=== PATIENT | male | born 1995 | race Caucasian/White ===

== ENCOUNTER 2016-08-06 13:56 | Emergency (ER) | payer OTHER ==
[~2016-08-06] VITALS: Ht 137.2 cm; Wt 54.0 kg
[~2016-08-06 13:56] MED LIST: ACET500C5 PO; ELEC100080 PO; ONDA4TAB35 PO
[2016-08-06 14:01] VITALS: Ht 137.2 cm; Wt 54.0 kg
[2016-08-06] MEDS ORDERED: ONDA8TAB14 PO (15:01)
[2016-08-06] MEDS ORDERED: ACET500C5 PO (15:01)
--- NOTE | 2016-08-06 15:13 | ERD ---
ER Documentation Chief Complaint Date/Time DATE: 08/06/16 TIME: 15:04 Chief Complaint vomitting since 4 am today HPI 20-year-old male with history of Down syndrome brought in by mother complaining of vomiting since 4 AM today. Mother stated that he vomited more than 10 times today. Last episode was 20 minutes ago. He was able to keep down small amount of water without vomiting. Mother took patient to [facility] ER this morning. Patient was diagnosed with cholelithiasis. He was discharged with prescription of Zofran and Spencer. Mother stated that he had not helped, patient is still vomiting. Mother is worried because patient is unable to communicate to him if he is in pain. He also has diarrhea starting today. He has not eaten anything today. Denies fever. Denies cough or runny nose. Mother has scheduled a appointment with PCP for tomorrow morning. ROS All systems reviewed and are negative except as per history of present illness. Medications Home Meds Active Scripts Acetaminophen* (Tylophen*) 500 Mg Capsule, 1 CAP PO Q6H Y for PAIN AND OR ELEVATED TEMP, #20 CAP Prov:ARCELIA TAYLOR. AGILE JAVA DEVELOPER 08/06/16 Ondansetron (Ondansetron Odt) 8 Mg Tab.rapdis, 8 MG PO Q6H Y for NAUSEA AND/OR VOMITING, #10 TAB Prov:ARCELIA TAYLOR AGILE JAVA DEVELOPER 08/06/16 Ondansetron Hcl* (Zofran* ODT) 4 mg -ODT Tab.disper, 4 MG PO Q6 Y for NAUSEA AND /OR VOMITING, #5 TAB Prov:ARCELIA TAYLOR AGILE JAVA DEVELOPER 12/14/15 Electrolyte,Oral (Pedialyte) 1,000 Ml Solution, 100 ML PO Q6 Y for VOMITTING, # 1000 ML Prov:ARCELIA TAYLOR. AGILE JAVA DEVELOPER 12/14/15 Acetaminophen* (Tylophen*) 500 Mg Capsule, 1 CAP PO Q6H Y for PAIN AND OR ELEVATED TEMP, #20 CAP Prov:ARCELIA TAYLOR AGILE JAVA DEVELOPER 12/14/15 Allergies Allergies: Coded Allergies: No Known Allergy (Unverified , 01/18/16) PMhx/Soc History of Surgery: Yes (ear surg x2) Anesthesia Reaction: No Hx Neurological Disorder: No Hx Respiratory Disorders: No Hx Cardiac Disorders: No Hx Psychiatric Problems: No Hx Miscellaneous Medical Probl: Yes (down syndrome) Hx Alcohol Use: No Hx Substance Use: No Hx Tobacco Use: No Physical Exam Vitals Vital Signs Date Time Temp Pulse Resp B/P Pulse Ox O2 Delivery O2 Flow Rate FiO2 08/06/16 14:01 98.9 112 18 115/63 97 Physical Exam General impression: Well-developed, well-nourished, 20-year-old male, patient is nonverbal, smiling, in no acute distress Head: Normocephalic, atraumatic. Respiration: Normal respiratory effort. Lungs clear to auscultate bilaterally. No wheezes, rales or rhonchi. Cardiovascular: Regular rate and rhythm. No murmurs or extra heart sounds. Abdomen: Abdomen normal to inspection. Right upper quadrant tenderness. No masses or organomegaly. Bowel sounds normal. Skin: Normal turgor. No rash or lesions. Psych: Normal mood and affect. Procedures/MDM Well-appearing 20-year-old male with history of Down syndrome presents to ED with vomiting and abdominal pain. Patient has undergone complete workup at [facility], and was diagnosed with cholelithiasis. The ultrasound at [facility] showed cholelithiasis with mild gallbladder wall thickening. Slightly elevated WBC of 12.1 is seen, CBC and CMP are otherwise normal. Patient was given Zofran and Spencer by [facility]. I suspect that Spencer might have contributed to his continued vomiting. Asked mother to stop the Spencer. Patient has appointment with PCP for tomorrow. Advised mother to request for a general surgeon referral by PCP. Meanwhile, try to maintain p.o. fluid intake for the patient, and gave him a bland diet if he is hungry. Patient appears well, stable for discharge and outpatient management. Medical decision making shared with patient and family. Education provided to patient and family. Patient and family expressed understanding of the plan. Medications on discharge: Zofran, Tylenol. Follow-up: Primary care provider in 2-3 days or return to ED if worse. Departure Diagnosis: Primary Impression: Vomiting Vomiting type: unspecified Vomiting Intractability: non-intractable Nausea presence: unspecified Qualified Code: R11.10 - Non-intractable vomiting, presence of nausea not specified, unspecified vomiting type Additional Impression: Cholelithiasis Cholelithiasis location: gallbladder Cholecystitis presence: without cholecystitis Biliary obstruction: without biliary obstruction Qualified Code : K80.20 - Calculus of gallbladder without cholecystitis without obstruction Condition: Stable Patient Instructions: Gallstones, Vomiting (6Y-Adult) Additional Instructions: Llame al doctor MAANA y juana sejal YOHAN PARA DENTRO DE 2-3 DOMÍNGUEZ.Dgale a la secretaria que nosotros le instruimos hacer esta yohan.Avise o llame si hussein condicin se empeora antes de la yohan. Regresa aqui si peor o no mejor. ARCELIA TAYLOR NP Aug 06, 2016 15:13
== END 2016-08-06 15:21 | disposition home or self-care (01) ==
LOC: FTE 13:56
DX: R11.10 Vomiting, unspecified (principal); K80.20 Calculus of gallbladder without cholecystitis without obstruction
CPT/HCPCS: 99283

== ENCOUNTER 2016-09-11 10:59 | Day surgery (SDC) | payer OTHER ==
[~2016-09-11] VITALS: Ht 152.4 cm; Wt 52.0 kg
[2016-09-11] VITALS (8 sets, daily range): BP systolic 91–127; BP diastolic 52–70; PULSE 77–93; RESP 18–25; Ht 152.4 cm; Wt 52.0 kg
[~2016-09-11 10:59] MED LIST changes: +CEFAZOLIN 1 GM INJ ONE; +EPHEDrine SULFATE 50 MG/5 ML SYG ONE; +ONDA8TAB14 PO
[2016-09-11] MEDS ORDERED: BUPIVACAINE 0.25% (MPF) 30 ML INJ ONE (12:54)
[2016-09-11] MEDS ORDERED: BUPIVACAINE 0.25% (STERILE-PAK) 30 ML INJ INJ ONE (13:00)
[2016-09-11] MEDS ORDERED: NEOSTIGMINE 3 MG/3 ML SYRINGE ONE (13:10)
[2016-09-11] MEDS ORDERED: FENTAnyl 50 MCG/ML VIAL ONE (13:10)
[2016-09-11] MEDS ORDERED: PROPOFOL 20 ML ONE (13:10)
[2016-09-11] MEDS ORDERED: ONDANSETRON 4 MG INJ ONE (13:10)
[2016-09-11] MEDS ORDERED: ROCURONIUM 50 MG INJ ONE (13:10)
[2016-09-11] MEDS ORDERED: MIDAZOLAM 1 MG/ML 2 ML INJ ONE (13:10)
[2016-09-11] MEDS ORDERED: DEXAMETHASONE 4 MG/ML 1 ML INJ ONE (13:10)
[2016-09-11] MEDS ORDERED: GLYCOPYRROLATE 0.4 MG INJ ONE (13:10)
[2016-09-11] MEDS ORDERED: LIDOCAINE 100 MG SYRINGE ONE (13:10)
[2016-09-11] MEDS ORDERED: KETOROLAC 30 MG INJ ONE (13:58)
[2016-09-11] MEDS ORDERED: HYDROmorphONE (0.2 MG/ML) 10ML SYG IV PRN ×2 (14:00)
[2016-09-11] MEDS ORDERED: hydrALAzine 20 MG INJ IV PRN (14:00)
[2016-09-11] MEDS ORDERED: FENTAnyl 50 MCG/ML VIAL IV PRN ×3 (14:00)
[2016-09-11] MEDS ORDERED: EPHEDrine SULFATE 50 MG/5 ML SYG IV PRN (14:00)
[2016-09-11] MEDS ORDERED: ONDANSETRON 4 MG INJ IV PRN (14:00)
[2016-09-11] MEDS ORDERED: LABETALOL HCL 20MG INJ IV PRN (14:00)
[2016-09-11] MEDS ORDERED: MIDAZOLAM 1 MG/ML 2 ML INJ IV PRN (14:00)
[2016-09-11] MEDS ORDERED: TRIMETHOBENZAMIDE 100 MG/ML VIAL IM PRN (14:00)
[2016-09-11] MEDS ORDERED: DIPHENHYDRAMINE 50 MG INJ IV PRN (14:00)
[2016-09-11] MEDS ORDERED: MEPERIDINE 25 MG INJ IV PRN (14:00)
--- NOTE | 2016-09-11 14:26 | OPR ---
DATE OF OPERATION: 09/11/2016 INDICATION: This is a 20-year-old male with symptomatic gallstones. He and his mother request surg ical excision of his gallbladder. Risks, alternatives, benefits, and personnel were discussed with the patient. Patient expressed understanding and consents to the operation. PREOPERATIVE DIAGNOSIS: Symptomatic gallstones. POSTOPERATIVE DIAGNOSIS: Symptomatic gallstones. OPERATION: Laparoscopic cholecystectomy. SURGEON: Harriett Zavala MD SPECIMENS: Gallbladder. COMPLICATIONS: None. ANESTHESIA: General. PROCEDURE: The patient was taken to the OR and prepped and draped in the usual sterile fashion. Rodriges rgical timeout was performed. IV antibiotics were given. Infraumbilical incision was made transver sely with a 15 blade. Dissection cautery was carried down to the fascia which was divided with curv ed Funez scissors. An 0 Vicryl U-stitch was placed in the fascia. Balloon Antonio trocar was introdu morro. Pneumoperitoneum was established. Midepigastric 12 mm optical trocar right upper quadrant, ri ght upper flank 5 mm optical trocars are placed under direct visualization. Upon initial inspection , there were some adhesions to the gallbladder. The cystic duct was identified. The critical view was established. The cystic duct and cystic artery are divided using a 35 mm [place] vascular load stapler. The gallbladder was taken off the gallbladder bed. There was good hemostasis. Gallbladde r was retrieved using an EndoCatch bag. Ports were removed under direct visualization, 0 Vicryl U-s titch was tied down. Skin was closed using interrupted 3-0 Vicryl and interrupted 4-0 Monocryl. Lo elfego anesthesia was injected. Dry dressings were applied. Dictated By: HARRIETT ZAVALA MD SB/NTS Conf#: [id number] DID#: [id number]
[2016-09-11] MEDS ORDERED: HYDROCODONE/APAP (5/325) TAB PO ONE (14:30)
[2016-09-11] MEDS: HYDROmorphONE (0.2 MG/ML) 10ML SYG IV PRN ×2 (14:33→14:38)
== END 2016-09-11 17:40 | disposition home or self-care (01) ==
LOC: SDS 10:59
PROVIDERS: ATTEND Surgery
DX: K80.10 Calculus of gallbladder with chronic cholecystitis without obstruction (principal); Q90.9 Down syndrome, unspecified
CPT/HCPCS: 47562; 88304; J0690; J1100; J1170; J1885; J2001; J2250; J2405; J2710; J3010; Z7512; Z7610

== ENCOUNTER 2017-01-14 07:13 | Day surgery (SDC) | payer OTHER ==
--- NOTE | 2017-01-13 14:26 | PREOPHP ---
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 Underwent myringotomy tube surgery in December 2013, February 2015, December 2015. Tubes have come out, conductive hearing loss and serous otitis persist. The patie nt now readmitted to the hospital for bilateral ear surgery. PAST MEDICAL HISTORY: Negative. ALLERGIES: Negative. DAILY MEDICATIONS: Negative. MEDICAL CONDITIONS: Negative. CLOTTING DISORDERS: Negative. HABITS: Negative. FAMILY HISTORY: Negative. REVIEW OF SYSTEMS: Negative. PAST SURGICAL HISTORY: See HPI. PHYSICAL EXAMINATION: GENERAL: Well-developed, well-nourished male patient in no acute distress. HEAD: Normocephalic. No masses or deformities. EARS AND TYMPANIC MEMBRANES: Reveal serous otitis media. NOSE: Clear. OROPHARYNX: Clear. NECK: No masses or adenopathy. CHEST: Clear to P and A. HEART: Regular sinus rhythm without murmur. ABDOMEN: Soft, bowel sounds normal. No masses or megaly. EXTREMITIES: Full range of motion without deformity. NEUROLOGIC: Physiologic. RECTAL: Not done. IMPRESSION: Serous otitis media. RECOMMENDATIONS: Admit for surgery. Dictated By: ILYA MOULTON/JAKOB Conf#: [id number] DID#: [id number]
[2017-01-14] VITALS (17 sets, daily range): BP systolic 63–141; BP diastolic 35–80; PULSE 76–112; RESP 13–25; Ht 144.8 cm; Wt 56.0 kg
[~2017-01-14] VITALS: Ht 144.8 cm; Wt 56.0 kg
[~2017-01-14 07:13] MED LIST changes: -ACET500C5 PO; -CEFAZOLIN 1 GM INJ ONE; -ELEC100080 PO; -EPHEDrine SULFATE 50 MG/5 ML SYG ONE; -ONDA8TAB14 PO
[2017-01-14] MEDS ORDERED: FENTAnyl 50 MCG/ML VIAL ONE (09:19)
[2017-01-14] MEDS ORDERED: PHENYLephrine (100 MCG/ML) 5ML SYG ONE (09:26)
[2017-01-14] MEDS ORDERED: PROCHLORPERAZINE 10 MG INJ IV PRN (09:30)
[2017-01-14] MEDS ORDERED: FENTAnyl 50 MCG/ML VIAL IV PRN (09:30)
[2017-01-14] MEDS ORDERED: ONDANSETRON 4 MG INJ IV PRN (09:30)
[2017-01-14] MEDS ORDERED: OXYCODONE/ACETAMINOPHEN (5/325) TAB PO PRN (09:30)
[2017-01-14] MEDS ORDERED: HYDROmorphONE (0.2 MG/ML) 10ML SYG IV PRN (09:30)
[2017-01-14] MEDS ORDERED: DIPHENHYDRAMINE 50 MG INJ IV PRN (09:30)
[2017-01-14] MEDS ORDERED: LIDOCAINE 2% (SDV) 5 ML INJ ONE (09:32)
[2017-01-14] MEDS ORDERED: PROPOFOL 40 ML ONE (09:32)
[2017-01-14] MEDS ORDERED: EPHEDrine SULFATE 50 MG/5 ML SYG ONE (10:23)
[2017-01-14] MEDS ORDERED: ACETAMINOPHEN 160 MG/5ML CUP PO PRN (10:30)
--- NOTE | 2017-01-14 17:31 | OPR ---
DATE OF OPERATION: 01/14/2017 PREOPERATIVE DIAGNOSIS: Serous otitis media. POSTOPERATIVE DIAGNOSIS: Serous otitis media. PROCEDURE PERFORMED: Bilateral myringotomies with tubes. OPERATION: The patient was brought to the operating room under parenteral sedation, general anesthe leo by mask. Sterile sheets and drapes applied. Zeiss microscope was utilized to clean both ears f ollowed by myringotomy incisions bilaterally with evacuation of thick fluid and placement of ventila ting tubes. The patient then awakened in the operating room and returned to recovery in excellent c ondition. ESTIMATED BLOOD LOSS: Nil. COMPLICATIONS: None. Dictated By: ILYA KUMARI MD SC/NTS Conf#: [id number] DID#: [id number]
== END 2017-01-14 11:20 | disposition home or self-care (01) ==
LOC: SDS 07:13
PROVIDERS: ATTEND Otolaryngology Otolaryngology/Facial Plastic Surgery
DX: H65.23 Chronic serous otitis media, bilateral (principal)
CPT/HCPCS: 69436; J2370; J3010; L8699; Z7512; Z7610

== ENCOUNTER 2017-05-18 21:07 | Emergency (ER) | payer OTHER ==
[~2017-05-18] VITALS: Wt 56.5 kg
[2017-05-18] MEDS ORDERED: ONDANSETRON 4 MG INJ IV STA (23:43)
--- NOTE | 2017-05-19 00:02 | ERD ---
ER Documentation Chief Complaint Chief Complaint vomiting/abd pain x 2 days HPI 21-year-old male with history of Down syndrome presents with a chief complaint of abdominal pain 4 days with vomiting. Decreased appetite per mother. Has not been able to tolerate fluids. Mother seems like a reliable historian. History of cholecystectomy. Mother reports fever but has not taken a temperature of the patient. Has not given any medications to relieve the symptoms. Patient has no other complaints and describes no other associated manifestations. Nursing notes have been reviewed and are consistent with history given. ROS All systems reviewed and are negative except as per history of present illness. Medications Home Meds Active Scripts Metoclopramide* (Reglan*) 10 Mg Tablet, 10 MG PO Q6 Y for NAUSEA AND/OR VOMITING , #10 TAB Prov:PRETTY AUGUSTINE PA-C 05/19/17 Allergies Allergies: Coded Allergies: No Known Allergy (Unverified , 05/18/17) PMhx/Soc History of Surgery: Yes (CHOLECYSTECTOMY, MYRINGOTOMY) Anesthesia Reaction: No Hx Neurological Disorder: No Hx Respiratory Disorders: No Hx Cardiac Disorders: No Hx Psychiatric Problems: No Hx Miscellaneous Medical Probl: Yes (DOWN'S SYNDROME) Hx Alcohol Use: No Hx Substance Use: No Hx Tobacco Use: No Smoking Status: Never smoker Physical Exam Vitals Vital Signs Date Time Temp Pulse Resp B/P Pulse Ox O2 Delivery O2 Flow Rate FiO2 05/18/17 21:14 99.0 91 20 130/66 98 Physical Exam Const: Healthy-appearing, well-nourished, well-developed, no acute distress. Throat: Erythematous oropharynx. No exudates visualized. Enlarged tonsils. Moist mucous membranes. Neck: Nontender anterior cervical lymphadenopathy palpated bilaterally. No posterior cervical lymphadenopathy, masses or goiter palpated. Trachea midline. Full range of motion. Supple. ~ No meningismus. Skin: No petechiae or rashes. No ulcer, induration, jaundice. Good turgor. Resp: No dyspnea, stridor, tripoding or drooling. Good air movement. Clear to auscultation bilaterally. Head: Normocephalic, Atraumatic. Eyes: Non-injected; No scleral erythema, discharge or foreign body. EOMI bilaterally. PERRLA. Ears: Normal External Ears, EACs clear, TM normal bilaterally without erythema. Nose: Normal nose without discharge, septal deviation, or sinus tenderness. Cardio: Regular rate and rhythm; No murmurs, gallops or rubs auscultated. No JVD grossly observed. Radial and posterior tibial pulses 2+ bilaterally. Capillary refill less than 2 seconds. Abd: Soft, non tender, non distended. No guarding, masses. Normal bowel sounds. No McBurney's point tenderness. MS: Normal motor strength, normal tone with gross examination. Back: No midline, flank or CVA tenderness. Ext: No cyanosis, edema or palpable cord. Normal movement of all extremities grossly observed. Neur: Awake, alert and oriented x3. Neurovascularly intact bilaterally. Psych: Normal Mood and Affect. Result Diagram: 05/18/17 2355 05/18/172354 Results 24 hrs Laboratory Tests Test 05/18/17 23:55 05/19/17 02:30 White Blood Count 5.810^3/ul Red Blood Count 5.2810^6/ul Hemoglobin 17.1g/dl Hematocrit 48.9% Mean Corpuscular Volume 92.6fl Mean Corpuscular Hemoglobin 32.4pg Mean Corpuscular Hemoglobin Concent 35.0g/dl Red Cell Distribution Width 12.8% Platelet Count 70072^3/UL Mean Platelet Volume 8.6fl Neutrophils % 61.1% Lymphocytes % 30.0% Monocytes % 7.4% Eosinophils % 0.3% Basophils % 0.5% Nucleated Red Blood Cells % 0.0/100WBC Neutrophils # 3.610^3/ul Lymphocytes # 1.810^3/ul Monocytes # 0.410^3/ul Eosinophils # 0.010^3/ul Basophils # 0.010^3/ul Nucleated Red Blood Cells # 0.010^3/ul Sodium Level 145mmol/L Potassium Level 3.6mmol/L Chloride Level 105mmol/L Carbon Dioxide Level 27mmol/L Anion Gap 17 Blood Urea Nitrogen 13mg/dl Creatinine 1.03mg/dl Glucose Level 104mg/dl Calcium Level 9.1mg/dl Total Bilirubin 0.3mg/dl Direct Bilirubin 0.00mg/dl Indirect Bilirubin 0.3mg/dl Aspartate Amino Transf (AST/SGOT) 29IU/L Alanine Aminotransferase (ALT/SGPT) 97IU/L Alkaline Phosphatase 114IU/L Total Protein 8.1g/dl Albumin 4.4g/dl Globulin 3.70g/dl Albumin/Globulin Ratio 1.18 Lipase 78U/L Urine Color YELLOW Urine Clarity CLEAR Urine pH 6.0 Urine Specific [place] 1.013 Urine Ketones NEGATIVEmg/dL Urine Nitrite NEGATIVEmg/dL Urine Bilirubin NEGATIVEmg/dL Urine Urobilinogen NEGATIVEmg/dL Urine Leukocyte Esterase NEGATIVELeu/ul Urine Hemoglobin NEGATIVEmg/dL Urine Glucose NEGATIVEmg/dL Urine Total Protein NEGATIVEmg/dl Current Medications Medications (Trade) Dose Ordered Sig/Mo Route PRN Reason Start Time Stop Time Status Last Admin Dose Admin Ondansetron HCl (Zofran Inj) 4 mg ONCE STAT IV 05/18/17 23:43 05/18/17 23:45 DC 05/19/17 00:24 Procedures/MDM 21-year-old male with history of Down syndrome presents with a chief complaint of abdominal pain nausea and vomiting as described in history and physical examination. I spoke to my attending who recommended CT scan of the abdomen without contrast. Labs were obtained and reveal the followin anion gap. Otherwise unremarkable. Urinalysis unremarkable. CT was read by the radiologist given the following impression: Unremarkable At this time a little suspicion for perforated viscus, serious bacterial infection, appendicitis, or other acute abdomen. Follow up with your PCP within the next 1-3 days for a more thorough evaluation and a possible referral to a specialist. Return the the emergency department immediately if symptoms worsen or change. If you have any questions regarding medications, ask your pharmacist or us before you leave. If any adverse reactions occur while taking your medications, discontinue the treatment and return to the emergency department immediately. Take your medications as directed, and complete the entire course of treatment. Departure Diagnosis: Primary Impression: Viral gastroenteritis Condition: Stable Additional Instructions: Follow up with your PCP within the next 1-3 days for a more thorough evaluation and a possible referral to a specialist. Return the the emergency department immediately if symptoms worsen or change. If you have any questions regarding medications, ask your pharmacist or us before you leave. If any adverse reactions occur while taking your medications, discontinue the treatment and return to the emergency department immediately. Take your medications as directed, and complete the entire course of treatment. PRETTY AUGUSTINE PA-C May 19, 2017 00:02
--- NOTE | 2017-05-19 00:54 | RADRPT ---
PROCEDURE: CT Abdomen and Pelvis without contrast. CLINICAL INDICATION: Pain. TECHNIQUE: CT scan of the abdomen and pelvis was performed on a multidetector slice CT scanner. No intravenous contrast material was utilized. Sagittal and coronal reformatted images were obtained fr om the axial source images. Images were reviewed on a high-resolution PACS workstation. Exam CTDlvol = 6.7 mGy and DLP = 397 Gy-cm. One of the following 3 dose reduction techniques were used: Automate d exposure control; adjustment of the mA and/or kV according to patient size; or use of iterative re construction technique. COMPARISON: Right upper quadrant ultrasound 07/27/2015. FINDINGS: There is no obstruction or ileus. The appendix is visualized and normal in size. There is no eviden ce for diverticulitis. There is no free fluid. The liver is overall normal in size. No intrahepatic lesions are identified. The gallbladder has bee n removed.. There is no definite biliary ductal dilation. Pancreas is normal in appearance. The sple en is unremarkable.. There are no adrenal masses. The aorta is normal caliber. Kidneys are normal in appearance without hydronephrosis, mass or calculus. There is no perinephric c ollection. Ureters are of normal caliber and without evidence for an obstructing calculus. The urin jesus alberto bladder is markedly distended.. Limited evaluation of the lung bases is unremarkable. The bones are unremarkable. IMPRESSION: 1. Markedly distended urinary bladder. No obstructive uropathy. 2. Status post cholecystectomy. No evidence for biliary obstruction. 3. No evidence for appendicitis. 4. No bowel obstruction or ileus. 5. Otherwise negative. RPTAT: HMVK .Abilio Fisher MD, MD Date Time Electronically viewed and signed by .Abilio Fisher MD, MD on 05/19/2017 00:53 .K/
[2017-05-19] MEDS ORDERED: METO10TA92 PO (03:06)
== END 2017-05-19 04:24 | disposition home or self-care (01) ==
LOC: FTE 21:07
DX: A08.4 Viral intestinal infection, unspecified (principal)
CPT/HCPCS: 36415; 74176; 80053; 81003; 83690; 85025; 96374; J2405; Z7502

== ENCOUNTER 2017-09-20 00:14 | Inpatient (IN) | END 2017-09-21 16:00 | disposition home or self-care (01) | DRG 392 ==

== ENCOUNTER 2017-09-25 15:00 | Outpatient (CLI) | END 2017-09-25 17:00 | disposition home or self-care (01) ==